=== PATIENT | male | born 1960 | race Caucasian/White ===

== ENCOUNTER 2020-05-11 10:43 | Inpatient (IN) | payer MEDICAID ==
[~2020-05-11] VITALS: Ht 172.7 cm; Wt 56.0 kg
--- NOTE | ~2020-05-11 | CON ---
[address] [address] CONSULTATION Name: HAL STEVENS Room: [address] [place]#: [id number] Admission: 05/11/20 Attend Phys: Terrence Hannon, Discharge: Date of : 56 Report #: [id number] THIS REPORT FOR: //name// cc: AMANUEL Das family physician/PCP AMANUEL - [place] family physician/PCP ~ THIS REPORT FOR: //name// CC: AMANUEL physician/PCP Terrence Hannon DATE OF SERVICE: 05/12/2020 HISTORY OF PRESENT ILLNESS: This is a 60-year-old male patient who was evaluated by me with a complicated history. The patient himself is a poor historian. Therefore, I reviewed the records in the computer and I talked to the patient and I do not have any record from [facility]. I have asked the staff to get the record from [facility] as soon as possible and call me as soon as we get those records. He had a history of weakness on the right side. This happened little more than a week ago. He was at [facility] and he indicates he had multiple testing including MRI. He tells me he was admitted there. He does not know anything about falling. Previously, he has told that he had weakness on the right side, which is becoming worse, but today he does not tell anything that to me. This patient does have COPD and Pulmonology is consulted. REVIEW OF SYSTEMS: Positive for COPD. He had a fall. He hit his nose. His CT of the head and C-spine was mostly unremarkable. There was no acute fracture. When I asked him, does he have any psychiatric problem, he says no, but he is on trazodone and buspirone. He is also on pregabalin and other pain medications. He is also on nortriptyline. For some reason he is also on midodrine. A 14-point review of system was attempted from the record from the patient and this is all I can get. PAST MEDICAL HISTORY: Positive for what he described as TIA and I need to get those records. FAMILY HISTORY: Negative for early age stroke. SOCIAL HISTORY: He has a history of smoking. PHYSICAL EXAMINATION: He is alert. He is responsive. He can tell me what month it is, and approximate date, but not the correct date. He knew who the president is and he knows what hospital he is in. His cranial nerve examination appeared noncontributory. He has a good visual field on both sides, the best I can tell. He moves all four extremities and [place] [address] CONSULTATION Name: HAL STEVENS KI Room: [address] [place] M.RRubi#: [id number] Admission: 05/11/20 Attend Phys: Terrence Hannon, Discharge: Date of : 56 Report #: [id number] sense looks intact. His reflexes are diminished, but I do not know what his baseline is. There is no meningeal sign. There is no carotid bruit in this patient. I could not look at the patient's fundus. He does appear to have shortness of breath. He is being seen by Pulmonology. IMPRESSION: Difficult to form in this patient. If he just had the workup for transient ischemic attack, then I think the best is to get those records from [facility] rather than doing the testing again. I am going to ask physical therapy to him mobilize him to see if he is really weak on the right side. It is difficult to tell when he is lying down, especially he is not very cooperative. Further workup will see what the record from [facility] shows and then we will decide about further management. If he is weak on the right side we may do a spine workup although he did have a CT of the C-spine. I spent little more than 50 minutes of time and majority was spent counseling and coordinating and reviewing his extensive records. Thank you very much for this referral. If you have any questions, please feel free to call me. Dr. Kim will be following up this patient with you from tomorrow. By: [id number] Stein MD /cherri
--- NOTE | ~2020-05-11 | CON ---
[address] [address] CONSULTATION Name: HAL STEVENS Room: [address] [place] Kate#: [id number] Admission: 05/11/20 Attend Phys: Terrence Hannon, Discharge: Date of : 56 Report #: [id number] THIS REPORT FOR: //name// cc: AMANUEL Das family physician/PCP AMANUEL Das family physician/PCP ~ THIS REPORT FOR: //name// CC: AMANUEL physician/PCP Terrence Hannon DATE OF SERVICE: 05/11/2020 REQUESTING PHYSICIAN: Terrence Hannon MD INDICATION FOR CONSULTATION: Shortness of breath. HISTORY OF PRESENT ILLNESS: This is a 60-year-old gentleman. He is an active smoker. He does have a history of COPD. He is on oxygen, assisted. The patient has been reporting increasing weakness for about a week's time. He has also fallen and he does have bruises on his face secondary to the fall. The patient at this time reports significant increase in shortness of breath compared with his baseline. He does have a cough. There is not much sputum. He is tachycardic. He does not report chest pain. He does not have upper respiratory complaints. There is no increase in swelling of lower extremities or calf pain. The patient earlier did report that he had pain on the right side of his chest with respiration and coughing. The patient has had headaches. PAST MEDICAL HISTORY: COPD, on oxygen 4 L continuous; hyperlipidemia; hypotension, requiring midodrine therapy; bipolar disorder; bowel resection; prostate surgery. SOCIAL HISTORY: The patient is an active smoker, unable to quantify exactly at this time. No known history of heavy alcohol use or illegal drug use. CURRENT MEDICATIONS: List in [facility], reviewed. HOME MEDICATIONS: List also in [facility], reviewed. PHYSICAL EXAMINATION: GENERAL: He is alert, awake and oriented. VITAL SIGNS: He is tachycardic, heart rate was 120; at the time of my evaluation, he was saturating 90%, but he was on 4 L oxygen, which is his baseline oxygen usage; respiratory rate mildly elevated to 22; temperature 37.1, which is his T-max. HEENT: Head is normocephalic. There are bruises on his face as well as nose. There is no throat erythema. There is [place] [address] CONSULTATION Name: HAL STEVENS [address] [id number] Admission: 05/11/20 Attend Phys: Terrence Hannon, Discharge: Date of : 56 Report #: [id number] NECK: Does not show raised JVP, asymmetry, masses or lymph nodes. CHEST: Symmetrical expansion on inspection and palpation. On auscultation, breath sounds are significantly decreased, expirations are prolonged, I do not hear any added sounds. HEART: Regular, tachycardia noted. ABDOMEN: Soft and nontender. EXTREMITIES: Lower extremities show no edema and no calf tenderness. Skin over the lower extremities is dry and intact. NEUROLOGICAL: He does move all extremities bilaterally equally and spontaneously with no focal deficit identified. IMAGING STUDIES: The patient had several CTs; I reviewed all of the reports. I reviewed the CT chest films myself as well. In summary, there is evidence of advanced COPD. I do not identify any significant increase in pulmonary vascular congestion or infiltrates. There is an incidental left adrenal mass, likely an adenoma. LABORATORY DATA: The patient's CBC as well as chemistries are in [facility]; these are reviewed. [facility], [facility]. COVID-19 screen is negative. Urinalysis in [facility], reviewed. ASSESSMENT/PLAN: 1. Vkbbd-[id number]-krygjvf hypoxemic/hypercarbic respiratory failure. There is significant increase in bicarbonate on the renal panel, which is consistent with significant hypercarbia. I considered obtaining an arterial blood gas; however, this will not exchange administrator at this time and the bicarbonate levels are decreasing; and therefore, I decided to hold off. Continue to titrate oxygen. It is not fully apparent to me as to why the patient has significant tachycardia; he does have bronchospasm, but tachycardia is out of proportion; therefore, I would recommend proceeding to CT angiogram of chest for tonight. 2. Chronic obstructive pulmonary disease exacerbation. We will treat him with Xopenex as well as Solu-Medrol. Zosyn as well also ordered by the primary service. We will review CTA chest results and then advise further. 3. Fall. The full etiology of the patient's fall is not fully defined at this time. 4. Facial injuries. These will make it difficult for BiPAP to be used. It is for this reason that I decided not to consider the same for now, although he may benefit later once his facial injuries have healed. 5. Fluid and electrolytes: He appears to be well hydrated now; therefore, discontinue IV fluids. 6. Active smoker. 7. History of hypertension as well as hypotension. Note that the patient's blood pressure currently is on the higher side. In the past, he has had hypotension requiring midodrine as well. 8. Possible history of a recent transient ischemic attack, evaluated at [facility]. [address] [place] [address] CONSULTATION Name: HAL STEVENS Room: [address] [place] Kate#: [id number] Admission: 05/11/20 Attend Phys: Terrence Hannon, Discharge: Date of : 56 Report #: [id number] 9. Deep vein thrombosis prophylaxis: Suggest starting Lovenox in the prophylactic dose pending CTA chest results. There are no injuries contraindicating such therapy. Thanks for this consultation. By: [id number] Garcia MD /cherri
[2020-05-11 10:45] VITALS: BP 133/75
[2020-05-11 11:07] LABS: HEMATOCRIT 42.1 % (42.0-52.0); HEMOGLOBIN 14.1 gm/dL (14.0-18.0); MCH 29.8 pg (26.0-34.0); MCHC 33.4 g/dL (28.0-37.0); MCV 89.2 fL (80.0-100.0); MPV 7.6 fl. (7.2-11.1); NUCLEATED RBCS 0 /100WBC; PLATELET COUNT* 404 thou/uL (150-400); RBC 4.72 mil/uL (4.50-6.00); RDW-CV 16.5 % (10.5-14.5); WBC 19.6 thou/uL (4.0-11.0)
[2020-05-11 11:16] LABS: ANION GAP < 0 mmol/L (7-16); BUN 11 mg/dL (7-18); CHLORIDE 98 mmol/L (98-107); CREATININE 0.8 mg/dL (0.6-1.3); GLUCOSE 126 mg/dL (70-99); POTASSIUM 5.4 mmol/L (3.5-5.1); SODIUM 141 mmol/L (136-145)
[2020-05-11 11:17] LABS: APTT 27.4 Seconds (25.0-31.3); INR 0.9; PROTIME 9.8 Seconds (9.20-11.50)
[2020-05-11 11:23] LABS: CO2 45 mmol/L (21-32)
[2020-05-11 11:31] LABS: ALBUMIN 3.2 g/dL (3.4-5.0); ALKALINE PHOSPHATASE 67 U/L (46-116); CK-MB MASS 4.9 ng/mL (<0.5-3.6); NT-PRO BRAIN NAT PEPTIDE 1277 pg/mL (<300); SGOT 19 U/L (15-37); SGPT 27 U/L (30-65); TOTAL BILIRUBIN 0.3 mg/dL (<0.1-1.0); TOTAL PROTEIN 7.2 g/dL (6.4-8.2)
[2020-05-11 11:36] LABS: ABSOLUTE EOSINOPHILS 0.2 thou/uL (0.0-0.7); ABSOLUTE LYMPHOCYTES 2.4 thou/uL (0.8-5.3); ABSOLUTE MONOCYTES 0.6 thou/uL (0.0-1.2); ABSOLUTE NEUTROPHILS 16.5 thou/uL (1.6-8.1); PLATELET ESTIMATE ADEQUATE
[2020-05-11] MEDS ORDERED: PROAIR HFA8.5 GM INH (12:18)
[2020-05-11] MEDS ORDERED: ASA81BEC PO (12:18)
[2020-05-11] MEDS ORDERED: LIPITOR 20 MG T20 M1 PO (12:18)
[2020-05-11] MEDS ORDERED: CARVEDILOL12.5 MG PO (12:19)
[2020-05-11] MEDS ORDERED: SYMBICORT160 MCG/4. INH (12:19)
[2020-05-11] MEDS ORDERED: BUSPIRONE HCL15 MG PO (12:19)
[2020-05-11] MEDS ORDERED: LATUDA40 MG PO (12:20)
[2020-05-11] MEDS ORDERED: FLONASE 0.05%50 MCG NARES (12:20)
[2020-05-11] MEDS ORDERED: NICOTINE TRANSD21 M1 (12:21)
[2020-05-11] MEDS ORDERED: MIDODRINE HCL 55 M1 PO (12:21)
--- NOTE | 2020-05-11 15:40 | EKG ---
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: CCD : 1960 Requested By: David Pimentel Order Number: [id number] MD: Silverio Blair Measurements Intervals Brick Rate: 110 P: 95 WI: 128 QRS: -52 QRSD: 88 T: 124 QT: 307 QTc: 416 Interpretive Statements Sinus tachycardia Artifact right atrial enlargement Left axis deviation Abnormal R-wave progression, late transition Baseline wander in lead(s) II,aVF,V2 No previous ECG available for comparison Electronically Signed On 05-11-2020 15:40:18 CDT by Silverio Blair [email or web address] <ELECTRONICALLY SIGNED> By: Silverio Blair MD, FACC 05/11/20 1540 1113 1113 Silverio Blair MD, FACC /EPI
[2020-05-11 16:33] VITALS: BP 147/94
[2020-05-11 16:56] LABS: URINE BILIRUBIN NEGATIVE (Negative); URINE BLOOD NEGATIVE (Negative); URINE CLARITY SL CLOUDY; URINE COLOR YELLOW; URINE GLUCOSE-RANDOM NEGATIVE (Negative); URINE KETONES NEGATIVE (Negative); URINE LEUKOCYTES-REFLEX NEGATIVE (Negative); URINE NITRITE-REFLEX NEGATIVE (Negative); URINE PROTEIN NEGATIVE (Negative); URINE SPECIFIC GRAVITY 1.015 (1.005-1.030); URINE UROBILINOGEN 0.2 E.U./dl (0.2-1.0)
[2020-05-11 17:19] VITALS: BP 126/82
[2020-05-11 20:00] VITALS: BP 119/86
[2020-05-11 20:00] LABS: CALCIUM 8.9 mg/dL (8.5-10.1); CREATININE 0.5 mg/dL (0.6-1.3); POTASSIUM 4.2 mmol/L (3.5-5.1)
[2020-05-12] VITALS (7 sets, daily range): BP systolic 112–146; BP diastolic 63–89
[2020-05-12] MEDS ORDERED: PAMELOR25 MG PO (02:22)
[2020-05-12] MEDS ORDERED: MIRALAX119 GM PO (02:23)
[2020-05-12] MEDS ORDERED: PROTONIX40 M2 PO (02:23)
[2020-05-12] MEDS ORDERED: PERCOCET 7.5-31 EAC1 PO (02:23)
[2020-05-12] MEDS ORDERED: LYRICA200 MG PO (02:25)
[2020-05-12] MEDS ORDERED: RAYOS5 MG PO (02:25)
[2020-05-12] MEDS ORDERED: SPIRIVA INH (02:26)
[2020-05-12] MEDS ORDERED: FLOMAX0.4 MG PO (02:26)
[2020-05-12] MEDS ORDERED: AMBIEN5 MG PO (02:27)
[2020-05-12] MEDS ORDERED: DESYREL150 MG PO (02:27)
[2020-05-12 05:35] LABS: ABSOLUTE LYMPHOCYTES 0.7 thou/uL (0.8-5.3); ABSOLUTE MONOCYTES 0.3 thou/uL (0.0-1.2); ABSOLUTE NEUTROPHILS 13.3 thou/uL (1.6-8.1); BASOPHILS 0.2 %; HEMATOCRIT 38.9 % (42.0-52.0); LYMPHOCYTES 4.7 %; MCH 29.8 pg (26.0-34.0); MCHC 33.5 g/dL (28.0-37.0); MONOCYTES 2.2 %; MPV 7.4 fl. (7.2-11.1); NUCLEATED RBCS 0 /100WBC; PLATELET COUNT* 414 thou/uL (150-400); POLYS 92.9 %; RBC 4.37 mil/uL (4.50-6.00); RDW-CV 16.6 % (10.5-14.5); WBC 14.3 thou/uL (4.0-11.0)
[2020-05-12 06:19] LABS: ALBUMIN 2.9 g/dL (3.4-5.0); CALCIUM 8.8 mg/dL (8.5-10.1); CREATININE 0.8 mg/dL (0.6-1.3); POTASSIUM 4.6 mmol/L (3.5-5.1); TOTAL BILIRUBIN 0.2 mg/dL (<0.1-1.0)
[2020-05-13] VITALS (7 sets, daily range): BP systolic 109–136; BP diastolic 59–94
[2020-05-13 05:07] LABS: ABSOLUTE LYMPHOCYTES 0.7 thou/uL (0.8-5.3); ABSOLUTE MONOCYTES 0.5 thou/uL (0.0-1.2); ABSOLUTE NEUTROPHILS 18.2 thou/uL (1.6-8.1); BASOPHILS 0.1 %; HEMATOCRIT 36.6 % (42.0-52.0); HEMOGLOBIN 12.2 gm/dL (14.0-18.0); LYMPHOCYTES 3.6 %; MCH 29.6 pg (26.0-34.0); MCHC 33.2 g/dL (28.0-37.0); MCV 89.3 fL (80.0-100.0); MONOCYTES 2.8 %; MPV 7.8 fl. (7.2-11.1); NUCLEATED RBCS 0 /100WBC; PLATELET COUNT* 420 thou/uL (150-400); POLYS 93.5 %; RDW-CV 16.7 % (10.5-14.5); WBC 19.5 thou/uL (4.0-11.0)
[2020-05-13 05:29] LABS: CREATININE 0.7 mg/dL (0.6-1.3)
--- NOTE | 2020-05-13 15:28 | 2DMMODE ---
[place] [address] 2 D/M-MODE ECHOCARDIOGRAM Name: HAL STEVENS KI Room: [address] IN [facility]#: [id number] Admission: 05/12/20 Attend Phys: Terrence Zamora Discharge: Date of : 56 Date of Service: 05/13/20 1527 Report #: [id number] THIS REPORT FOR: cc: FAM - No family physician/PCP FAM - No family physician/PCP Silverio Blair MD [facility] ~ APPROVED REPORT Study performed: 05/13/2020 10:25:42 EXAM: Comprehensive 2D, Doppler, and color-flow Echocardiogram Patient Location: In-Patient Room #: [facility] BSA: 1.67 HR: 87 bpm BP: 124/76 mmHg Rhythm: NSR Other Information Study Quality: Good Indications COPD Syncope BACTEREMIA 2D Dimensions IVSd: 8.20 (7-11mm) LVOT Diam: 22.61 (18-24mm) LVDd: 43.26 mm PWd: 10.61 (7-11mm) LVDs: 28.29 (25-40mm) Aortic Root: 33.76 mm Volumes Left Atrial Volume (Systole) LA ESV Index: 29.60 mL/m2 Aortic Valve AoV Peak Giancarlo.: 1.75 m/s AO Peak Gr.: 12.22 mmHg LVOT Max P.43 mmHg AO Mean Gr.: 6.85 mmHg LVOT Mean P.85 mmHg LVOT Max V: 1.27 m/s AO V2 VTI: 34.10 cm LVOT Mean V: 0.76 m/[place] [address] 2 D/M-MODE ECHOCARDIOGRAM Name: HAL STEVENS Room: [address] IN [facility].#: [id number] Admission: 05/12/20 Attend Phys: Terrence Zamora Discharge: Date of : 56 Date of Service: 05/13/20 1527 Report #: [id number] MALENA (VTI): 2.74 cm2 LVOT V1 VTI: 23.27 cm Mitral Valve MV Mean Gr.: 4.29 mmHg E/A Ratio: 1.01 MV Decel. Time: 241.69 ms MV E Max Giancarlo.: 1.32 m/s MV PHT: 70.09 ms MVA (PHT): 3.14 cm2 TDI E/Lateral E': 13.20 E/Medial E': 14.67 Medial E' Giancarlo.: 0.09 m/s Lateral E' Giancarlo.: 0.10 m/s Pulmonary Valve PV Peak Giancarlo.: 0.97 m/s PV Peak Gr.: 3.75 mmHg Tricuspid Valve RAP Estimate: 5.00 mmHg TR Peak Gr.: 29.32 mmHg RVSP: 34.00 mmHg PA Pressure: 34.00 mmHg Left Ventricle The left ventricle is normal size. There is normal LV segmental wall motion. There is normal left ventricular wall thickness. Left ventricular systolic function is normal. LVEF is 65-70%. Grade I - abnormal relaxation pattern. Right Ventricle The right ventricle is normal size. The right ventricular systolic function is normal. Atria Left atrium is mildly dilated. The right atrium size is normal. Aortic Valve Mild aortic valve sclerosis. No aortic regurgitation is present. There is no aortic valvular stenosis. Mitral Valve There is mitral annular calcification. Trace mitral regurgitation. No evidence of mitral valve stenosis. Tricuspid Valve The tricuspid valve is normal in structure[place] [address] 2 D/M-MODE ECHOCARDIOGRAM Name: HAL STEVENS Room: [address] IN [facility].#: [id number] Admission: 05/12/20 Attend Phys: Terrence Zamora Discharge: Date of : 56 Date of Service: 05/13/20 1527 Report #: [id number] regurgitation. Mild pulmonary hypertension. The RVSP is 35-40 mmHg. Pulmonic Valve The pulmonary valve is normal in structure. Trace pulmonic regurgitation. Great Vessels The aortic root is normal in size. IVC is normal in size and collapses >50% with inspiration. Pericardium There is no pericardial effusion. <Conclusion> The left ventricle is normal size. There is normal left ventricular wall thickness. Left ventricular systolic function is normal. LVEF is 65-70%. Grade I - abnormal relaxation pattern. There is normal LV segmental wall motion. Left atrium is mildly dilated. Mild aortic valve sclerosis. There is no aortic valvular stenosis. Trace mitral regurgitation. There is mitral annular calcification. Trace tricuspid regurgitation. Mild pulmonary hypertension. The RVSP is 35-40 mmHg. IVC is normal in size and collapses >50% with inspiration. <ELECTRONICALLY SIGNED> By: Silverio Blair MD, FACC 05/13/20 1527 1527 1527 Silverio Blair MD, FACC /INF
[2020-05-14] VITALS: BP 132/89
[2020-05-14 04:00] VITALS: BP 113/75
[2020-05-14 05:26] LABS: ABSOLUTE LYMPHOCYTES 0.6 thou/uL (0.8-5.3); ABSOLUTE MONOCYTES 0.2 thou/uL (0.0-1.2); ABSOLUTE NEUTROPHILS 11.9 thou/uL (1.6-8.1); EOSINOPHILS 0.1 %; HEMOGLOBIN 12.9 gm/dL (14.0-18.0); LYMPHOCYTES 4.8 %; MCH 29.5 pg (26.0-34.0); MCHC 33.1 g/dL (28.0-37.0); MCV 89.1 fL (80.0-100.0); MONOCYTES 1.3 %; MPV 7.6 fl. (7.2-11.1); NUCLEATED RBCS 0 /100WBC; PLATELET COUNT* 427 thou/uL (150-400); POLYS 93.8 %; RBC 4.37 mil/uL (4.50-6.00); RDW-CV 16.5 % (10.5-14.5); WBC 12.6 thou/uL (4.0-11.0)
[2020-05-14 05:39] LABS: ALBUMIN 2.7 g/dL (3.4-5.0); CALCIUM 8.6 mg/dL (8.5-10.1); CREATININE 0.7 mg/dL (0.6-1.3); POTASSIUM 4.1 mmol/L (3.5-5.1); TOTAL BILIRUBIN 0.3 mg/dL (<0.1-1.0); TOTAL PROTEIN 6.2 g/dL (6.4-8.2)
[2020-05-14 08:00] VITALS: BP 116/71
[2020-05-14] MEDS ORDERED: AZITHROMYCIN 2250 MG PO (10:02)
[2020-05-14 11:01] VITALS: BP 113/75
[2020-05-14 13:55] VITALS: BP 113/75
[2020-05-14 14:01] VITALS: BP 121/72
== END 2020-05-14 15:00 | disposition home health service (06) | DRG 177 ==
LOC: M.ERS 10:43 → M.TBA-ER 12:56 → M.2W 17:05
PROVIDERS: Family Medicine; Internal Medicine Critical Care Medicine; Nurse Practitioner; ADMIT Family Medicine; ATTEND Family Medicine
DX: J15.6 Pneumonia due to other Gram-negative bacteria (principal); J96.21 Acute and chronic respiratory failure with hypoxia; S00.83XA Contusion of other part of head, initial encounter; E78.5 Hyperlipidemia, unspecified; F31.9 Bipolar disorder, unspecified; I10 Essential (primary) hypertension; J43.9 Emphysema, unspecified; S00.33XA Contusion of nose, initial encounter; D72.829 Elevated white blood cell count, unspecified; D35.02 Benign neoplasm of left adrenal gland; Z88.8 Allergy status to other drugs, medicaments and biological substances; Z86.73 Personal history of transient ischemic attack (TIA), and cerebral infarction without residual deficits; Z71.6 Tobacco abuse counseling; W18.39XA Other fall on same level, initial encounter; Y93.89 Activity, other specified; Y92.89 Other specified places as the place of occurrence of the external cause; Y99.8 Other external cause status; Z20.828 Contact with and (suspected) exposure to other viral communicable diseases